=== PATIENT | male | born 1990 | race Two or more races ===

== ENCOUNTER 2020-02-07 03:52 | Emergency (ER) | payer MEDICAID, OTHER ==
[~2020-02-07] VITALS: Ht 182.9 cm; Wt 69.0 kg
[2020-02-07] MEDS ORDERED: ALBUTEROL (0.083%) 2.5MG/3ML NEB HHN STA (07:17)
[2020-02-07] MEDS ORDERED: IPRATROPIUM BROMIDE (0.02%) 0.5MG/2.5ML NEB HHN STA (07:17)
[2020-02-07] MEDS ORDERED: SODIUM CHLORIDE 0.9% 500 ML IV ONE (07:30)
[2020-02-07] MEDS ORDERED: ALBUTEROL 6.7GM HFA INHALER ORI ONE (08:15)
[2020-02-07 08:32] LABS: BASOPHILS % 0.1 % (0.0-2.0); HEMATOCRIT. 43.9 % (42.0-52.0); LYMPHOCYTES % 28.3 % (20.0-50.0); MEAN CORPUSCULAR HEMOGLOBIN 30.4 pg (28.0-32.0); MEAN PLATELET VOLUME 11.3 fl (7.4-10.4); MONOCYTES % 12.3 % (2.0-8.0); NEUTROPHILS % 59.3 % (40.0-76.0); PLATELET 112 x1000/uL (130-400); RED BLOOD CELL COUNT 4.94 mill/uL (4.7-6.1); RED CELL DISTRIBUTION WIDTH 13.2 % (11.6-14.6)
[2020-02-07 08:42] LABS: CHLORIDE 104 mEq/L (98-107)
[2020-02-07] MEDS ORDERED: LORAZEPAM 0.5MG TABLET PO ONE (08:45)
[2020-02-07 10:20] VITALS: BP 118/80
[2020-02-07] MEDS ORDERED: IOHEXOL-350 100 ML BOTTLE ONE (10:52)
== END 2020-02-07 10:39 | disposition home or self-care (01) ==
LOC: ER 03:52
DX: U07.1 COVID-19 (principal); J45.909 Unspecified asthma, uncomplicated; R00.0 Tachycardia, unspecified; F41.9 Anxiety disorder, unspecified
CPT/HCPCS: 36415; 71045; 71275; 80053; 83880; 84484; 85025; 85379; 93005; 99285; J7030; Q9967; Z7610